=== PATIENT | female | born 1980 | race Caucasian/White ===

== ENCOUNTER 2017-03-29 13:39 | Emergency (ER) | payer OTHER ==
--- NOTE | ~2017-03-29 | ER ---
PATIENT'S NAME: JAY [facility] AGE: 36 Y [address] ROOM: [place] [id number] LOCATION: [facility] ADMIT DATE: 03/29/2017 ER/Outpatient Report DISCHARGE DATE: 03/29/2017 FAMILY PHYSICIAN: Lexa Tate MD ATTENDING PHYSICIAN: Sam Foote Time of Arrival: 1339 hours. Time of Evaluation: 1345 hours. CHIEF COMPLAINT: Abdominal pain, right upper quadrant. HISTORY OF PRESENT ILLNESS: The patient is a 36-year-old female who presents to the emergency department today with chief complaint of right upper quadrant abdominal pain. The patient reports this started about 7:45 this morning. She denies any fevers, does have some chills. She does report that it was a sharp-type pain. It is currently 7/10 in severity. She did have some shortness of breath with it initially but none now. She did try to drink a half a cup on milk and some Prilosec without any relief. It is constant, sharp-type pain. It does radiate around to her back. She had a mild cough. Has had some cold symptoms for the past 10 days with nasal congestion and nasal drainage. Denies any fevers or chills. No nausea or vomiting. Does report some diarrhea this morning, but no constipation. No urinary symptoms. No vaginal bleeding. No vaginal discharge. PAST MEDICAL HISTORY: Asthma, hypothyroidism, seasonal allergies. PAST SURGICAL HISTORY: Cholecystectomy. SOCIAL HISTORY: The patient denies any tobacco, alcohol, or illicit drug use. ALLERGIES: TO PENICILLIN AND CEFTIN. MEDICATIONS: Please see list. PRIMARY CARE DOCTOR: Lexa Tate MD. REVIEW OF SYSTEMS: PATIENT'S NAME: JAY [facility]AY [facility] AGE: 36 Y [address] ROOM: [place], [place] [id number] LOCATION: [facility] ADMIT DATE: 03/29/2017 ER/Outpatient Report DISCHARGE DATE: 03/29/2017 FAMILY PHYSICIAN: Lexa Tate MD ATTENDING PHYSICIAN: Sam Foote All systems are reviewed by myself and are negative with the exception of those discussed in HPI and past medical history. PHYSICAL EXAMINATION: VITAL SIGNS: Weight 110.2 kilograms, blood pressure 134/84, pulse 100, respiratory rate 18, temperature 99.2, oxygen saturation 97% on room air. GENERAL: The patient is a 36-year-old female who appears stated age, in mild acute distress. HEENT: Head; normocephalic, atraumatic. Pupils are equal, round, and reactive to light. Oropharynx is clear. NECK: Supple. There is no nuchal rigidity. CARDIOVASCULAR: Tachycardic. No murmurs, rubs, or gallops. LUNGS: Clear to auscultation bilaterally. No wheezes, rales, or rhonchi. ABDOMEN: Soft, mild right upper quadrant tenderness to palpation. There is no rebound, rigidity, or guarding. Positive bowel sounds. MUSCULOSKELETAL: The patient moves all 4 extremities. Has 5/5 muscle strength. SKIN: Warm and dry. There are no rashes or lesions noted. LABORATORY DATA AND X-RAYS: Labs and x-rays are obtained. CBC is remarkable for a white blood cell count of 13.2, otherwise, normal. Procalcitonin is normal. Lactate is normal. H. pylori is negative. Lactate is negative. CMP is normal. LFTs normal. Amylase and lipase normal. Urinalysis is unremarkable. Urine hCG is negative. CT scan of the abdomen and pelvis is obtained, I have discussed results with the radiologist, shows no acute process. IMPRESSION: 1. Acute nonsurgical right upper quadrant abdominal pain, unclear etiology. 2. Initial visit. EMERGENCY DEPARTMENT COURSE: The patient brought back to the examination room. Seen and evaluated by myself. IV is established. Laboratory analysis and imaging are obtained as described above. The patient is given morphine 4 mg IV as well as 4 mg of Zofran IV. She is given another 2 mg dose of IV morphine as well as a GI cocktail p.o. I have discussed the results with the patient. I re-examined the patient's abdominal exam. She continues to have a nonsurgical abdominal exam at this time. I have discussed with her I would like her to follow up with Dr. Tate in 2 days for re-evaluation. I have discussed return to care instructions including worsening symptoms or any other concerns to return to the emergency department as soon as possible. The patient is agreeable. Her questions are answered. She is without further questions at this time. I have written a prescription for [place] with sedation warning for home as well as Zofran for nausea. PATIENT'S NAME: VICTOR [facility] AGE: 36 Y [address] ROOM: [place] [id number] LOCATION: [facility] ADMIT DATE: 03/29/2017 ER/Outpatient Report DISCHARGE DATE: 03/29/2017 FAMILY PHYSICIAN: Lexa Tate MD ATTENDING PHYSICIAN: Sam Foote DISPOSITION: The patient discharged home in good condition. DO DON NAIDU/marlon /[id number] d: 03/30/17 0001 t: 03/31/17 0718, OUTPATIENT REPORT
[2017-03-29 14:03] LABS: BILIRUBIN URINE NEGATIVE (NEGATIVE); BLOOD URINE 10 /UL (NEGATIVE); COLOR URINE YELLOW (YELLOW); GLUCOSE URINE NEGATIVE (NEGATIVE); KETONE URINE 15 mg/dL (NEGATIVE); LEUKOCYTES URINE 100 /UL (NEGATIVE); NITRITE URINE NEGATIVE (NEGATIVE); PROTEIN URINE NEGATIVE (NEGATIVE); SPEC GRAVITY URINE 1.015 (1.003-1.035); TURBIDITY URINE CLEAR (CLEAR); UROBILINOGEN URINE NORMAL (NORMAL)
[2017-03-29 14:13] LABS: BASOPHIL # 0.1 K/uL (0.0-0.2); BASOPHIL % 0.5 %; EOSINOPHIL # 0.4 K/uL (0.0-0.5); HEMATOCRIT 39.8 % (33.0-46.0); HEMOGLOBIN 13.6 g/dL (11.0-15.0); IMMATURE GRANULOCYTE # 0.1 K/uL (0.0-0.3); IMMATURE GRANULOCYTE % 0.5 %; LYMPHOCYTE # 1.3 K/uL (0.8-4.0); LYMPHOCYTE % 9.9 %; MCH 30.6 pg (27.0-34.0); MCHC 34.2 gm/dL (32.0-36.5); MCV 89.4 fl (83.0-98.0); MONOCYTE # 0.9 K/uL (0.0-1.0); MPV 10.4 fl (9.4-12.4); NEUTROPHIL # (ANC) 10.5 K/uL (1.8-7.8); NEUTROPHIL % 79.1 %; NRBC % 0 /100WBC (0-0.00); PLATELET COUNT 406 K/uL (150-450); RBC 4.45 M/uL (3.50-5.50); RDW-CV 13.6 % (11.9-14.6); WBC 13.2 K/uL (4.0-11.0)
[2017-03-29 14:14] LABS: BACTERIA URINE NEGATIVE (NEGATIVE); EPITHELIAL URINE 0-2 #/HPF (NEGATIVE); RBC URINE RARE #/HPF (NEGATIVE); WBC URINE 0-2 #/HPF (NEGATIVE)
[2017-03-29 14:34] LABS: ALBUMIN 3.7 gm/dL (3.5-5.0); ALK PHOS 86 IU/L (33-138); ALT 42 IU/L (12-78); AST 25 IU/L (10-40); BLOOD UREA NITROGEN 16 mg/dL (6-24); CALCIUM 8.8 mg/dL (8.5-10.5); CHLORIDE 105 mMol/L (96-110); CO2 22 mMol/L (22-32); CREATININE 0.7 mg/dL (0.5-1.1); ESTIMATED GFR (MDRD EQUATION) > 60; SODIUM 136 mMol/L (135-145); TOTAL BILIRUBIN 0.8 mg/dL (0.0-1.5); TOTAL PROTEIN 7.9 g/dL (6.0-8.4)
== END 2017-03-29 16:06 | disposition disaster alternative care site (69) ==
LOC: GMED 13:39
PROVIDERS: Emergency Medicine
DX: R10.11 Right upper quadrant pain (principal); E03.9 Hypothyroidism, unspecified; J45.909 Unspecified asthma, uncomplicated; Z88.0 Allergy status to penicillin; Z88.1 Allergy status to other antibiotic agents; Z79.899 Other long term (current) drug therapy; Z90.49 Acquired absence of other specified parts of digestive tract
CPT/HCPCS: J2270; J2405; J7030; Q9967